=== PATIENT | female | born 1980 | race Caucasian/White ===

== ENCOUNTER 2019-12-20 13:32 | Emergency (ER) | payer OTHER ==
[~2019-12-20] VITALS: Ht 170.2 cm; Wt 60.0 kg
[2019-12-20 13:35] VITALS: BP 132/72
[2019-12-20] MEDS ORDERED: HYDR-3165 PO (14:23)
--- NOTE | 2019-12-20 14:23 | PHYS DOC ---
General Adult EDM: Chief Complaint: RIB PAIN HPI: HPI: 39-year-old female presents with right rib pain. The patient was playing with her son yesterday and he accidentally struck her in the right ribs with a wooden sword. It was painful yesterday, but today it is very painful. It is worse with deep breathing. She is concerned about fracture. There is no ecchymosis. She denies any other injuries or complaints. Review of Systems: Review of Systems: Constitutional: Denies fever or chills Eyes: Denies change in visual acuity HENT: Denies nasal congestion or sore throat Respiratory: Denies cough or shortness of breath Cardiovascular: Denies chest pain or edema GI: Denies abdominal pain, nausea, vomiting, bloody stools or diarrhea : Denies dysuria Musculoskeletal: Right rib pain Integument: Denies rash Neurologic: Denies headache, focal weakness or sensory changes Endocrine: Denies polyuria or polydipsia Lymphatic: Denies swollen glands Psychiatric: Denies depression or anxiety Heart Score: Risk Factors: Risk Factors: DM, Current or recent (<one month) smoker, HTN, HLP, family history of CAD, obesity. Risk Scores: Score 0 - 3: 2.5% MACE over next 6 weeks - Discharge Home Score 4 - 6: 20.3% MACE over next 6 weeks - Admit for Clinical Observation Score 7 - 10: 72.7% MACE over next 6 weeks - Early Invasive Strategies Physical Exam: PE: Constitutional: Well developed, well nourished, no acute distress, non-toxic appearance. [] HENT: Normocephalic, atraumatic, bilateral external ears normal, oropharynx moist, no oral exudates, nose normal. [] Eyes: PERRLA, EOMI, conjunctiva normal, no discharge. [] Neck: Normal range of motion, no tenderness, supple, no stridor. [] Cardiovascular:Heart rate regular rhythm, no murmur [] Lungs & Thorax: Bilateral breath sounds clear to auscultation. Tenderness over the right lateral ribs 8 through 10. [] Abdomen: Bowel sounds normal, soft, no tenderness, no masses, no pulsatile masses. [] Skin: Warm, dry, no erythema, no rash. [] Back: No tenderness, no CVA tenderness. [] Extremities: No tenderness, no cyanosis, no clubbing, ROM intact, no edema. [] Neurologic: Alert and oriented X 3, normal motor function, normal sensory function, no focal deficits noted. [] Psychologic: Affect normal, judgement normal, mood normal. [] EKG: EKG: [] Radiology/Procedures: Radiology/Procedures: [] Impressions: RIBS RIGHT AND PA CHEST DATE: 12/20/2019 1:50 PM INDICATION: fall, pain COMPARISON: None available. FINDINGS: Chest: Heart size is within normal limits. No focal consolidations are seen. No evidence for pulmonary edema, pleural effusion, or pneumothorax. Bones: No radiographic evidence for a displaced, right-sided rib fracture is seen. IMPRESSION: No radiographic evidence for right-sided rib fracture. Electronically signed by: Eran Rangel MD (12/20/2019 2:37 PM) [id number] DICTATED AND SIGNED BY: ERAN RANGEL MD DATE: 12/20/19 1437 CC: SELVIN SALCIDO DO; PCP,UNKNOWN ~ Course & Med Decision Making: Course & Med Decision Making Pertinent Labs and Imaging studies reviewed. (See chart for details) The patient's ribs are not fractured. She seems to have a bruised rib. I will discharge her with a short course of [place] 5/325 for pain. The patient is stable for discharge at this time. [] Dragon Disclaimer: Dragon Disclaimer: This electronic medical record was generated, in whole or in part, using a voice recognition dictation system. Departure Departure: Impression: Primary Impression: Bruised rib Qualified Codes: S20.211A - Contusion of right front wall of thorax, initial encounter Disposition: HOME/RESIDENCE PRIOR TO ADM Condition: STABLE Referrals: PCP,UNKNOWN (PCP) Patient Instructions: Rib Contusion Scripts Hydrocodone Bit/Acetaminophen (NORCO 5-325 TABLET) 1 Each Tablet 1 TAB PO PRN Q6HRS PRN for PAIN, #10 TAB 0 Refills Prov: SELVIN SALCIDO DO 12/20/19 Justification of Admission: Justification of Admission: Justification of Admission Dx: N/A SELVIN SALCIDO DO Dec 20, 2019 14:23
--- NOTE | 2019-12-20 14:40 | RAD ---
RIBS RIGHT AND PA CHEST DATE: 12/20/2019 1:50 PM INDICATION: fall, pain COMPARISON: None available. FINDINGS: Chest: Heart size is within normal limits. No focal consolidations are seen. No evidence for pulmonary edema, pleural effusion, or pneumothorax. Bones: No radiographic evidence for a displaced, right-sided rib fracture is seen. IMPRESSION: No radiographic evidence for right-sided rib fracture. Electronically signed by: Davy Pollack MD (12/20/2019 2:37 PM) [id number]
== END 2019-12-20 14:45 | disposition home or self-care (01) ==
LOC: ER 13:32
DX: S20.211A Contusion of right front wall of thorax, initial encounter (principal); W22.8XXA Striking against or struck by other objects, initial encounter; Y93.89 Activity, other specified; Y92.89 Other specified places as the place of occurrence of the external cause; Y99.8 Other external cause status
CPT/HCPCS: 71101; 99283